=== PATIENT | female | born 1955 | race Caucasian/White ===

== ENCOUNTER 2023-07-27 12:33 | Inpatient (IN) | payer OTHER ==
[2023-07-27 13:22] VITALS: BMI 18.4
[2023-07-27] MEDS ORDERED: BENZONATATE 200 MG CAPSULE PO PRN (13:54)
[2023-07-27] MEDS ORDERED: guaiFENesin 600 MG TABLET.ER (FP) PO PRN (13:54)
[2023-07-27] MEDS ORDERED: hydrOXYzine PAMOATE 25 MG CAPSULE (FP) PO PRN (13:54)
[2023-07-27] MEDS ORDERED: BENZOCAINE/MENTHOL (CHLORASEPTIC ) LOZENGE MM PRN (13:54)
[2023-07-27] MEDS ORDERED: POLYETHYLENE GLYCOL (HEALTHYLAX) 3350 17 GM PACKET PO PRN (13:54)
[2023-07-27] MEDS ORDERED: LOPERAMIDE HCL 2 MG CAPSULE PO PRN (13:54)
[2023-07-27] MEDS ORDERED: NALOXONE HCL 0.4 MG/ML VIAL IM PRN (13:54)
[2023-07-27] MEDS ORDERED: MAGNESIUM HYDROX 2400MG/30ML ORAL SUSPENSION 30 ML CUP PO PRN (13:54)
[2023-07-27] MEDS ORDERED: IBUPROFEN 400 MG TABLET (FP) PO PRN (13:54)
[2023-07-27] MEDS ORDERED: MAG HYDROX/AL HYDROX/SIMETH 30 ML UNIT-DOSE CUP PO PRN (13:54)
[2023-07-27] MEDS ORDERED: NALOXONE HCL (KLOXXADO) 8 MG SPRAY NS PRN (13:54)
[2023-07-27] MEDS ORDERED: PRENATAL VITAMINS W/ FOLIC ACID TABLET (FP) PO ONE (15:01)
[2023-07-27] MEDS: PRENATAL VITAMINS W/ FOLIC ACID TABLET (FP) PO SCH (15:23)
[2023-07-27] MEDS: IBUPROFEN 600 MG TABLET (FP) PO PRN (18:41)
[2023-07-27] MEDS: ALBUTEROL SO4 HFA INHALER IH PRN (18:46)
[2023-07-27] MEDS: MELATONIN 5 MG TABLETS PO SCH (21:42)
[2023-07-27] MEDS: GABAPENTIN 300 MG CAPSULE PO SCH (21:42)
[2023-07-27] MEDS: THIAMINE HCL 100 MG TABLET (FP) PO SCH (21:42)
[2023-07-27] MEDS: OLANZapine 5 MG TABLET PO SCH (21:42)
[2023-07-27] MEDS: TUBERCULIN PPD 5 TU/0.1ML VIAL ID ONE (22:21)
[2023-07-28] MEDS: LEVOTHYROXINE 100 MCG, LEVOTHYROXINE 25 MCG PO SCH (07:17)
[2023-07-28] MEDS: SERTRALINE HCL 50 MG TABLET (FP) PO SCH (09:57)
[2023-07-28] MEDS ORDERED: LEVOTHYROXINE NA 125 MCG TABLET (FP) PO SCH (10:00)
[2023-07-28 10:31] LABS: HEMATOCRIT 29.4 % (32.4-45.2); HEMOGLOBIN 9.6 GM/dL (10.7-15.3); MCH 29.6 pg (25.7-33.7); MCHC 32.7 g/dl (32.0-36.0); MEAN CELL VOLUME 90.5 fl (80-96); MEAN PLT VOLUME 9.6 fl (7.5-11.1); PLATELET COUNT 267 10^3/uL (134-434); RBC 3.25 M/mm3 (3.60-5.2)
[2023-07-28 10:37] LABS: CHLORIDE 103 mmol/L (98-107); POTASSIUM 4.5 mmol/L (3.5-5.1); SODIUM 139 mmol/L (136-145)
[2023-07-28 10:44] LABS: ALBUMIN 3.5 g/dl (3.4-5.0); ANION GAP 6 mmol/L (4-13); BLOOD UREA NITROGEN 26.4 mg/dL (7-18); CALCIUM 9.2 mg/dL (8.5-10.1); CO2 30 mmol/L (21-32); GLUCOSE,RANDOM 88 mg/dL (74-106)
[2023-07-28 10:46] LABS: BILIRUBIN,TOTAL 0.2 mg/dL (0.2-1); CREATININE 0.9 mg/dL (0.55-1.3); SGPT/ALT 16 U/L (13-61); TOT PROT 6.8 g/dl (6.4-8.2)
[2023-07-28 10:47] LABS: SGOT/AST 20 U/L (15-37)
[2023-07-28 10:48] LABS: ALK PHOS 55 U/L (45-117)
[2023-07-28 10:59] LABS: SYPHILIS W/ RPR CONF NON-REACTIVE (NONREACTIVE)
[2023-07-28] MEDS: PNEUMOC 20-VAL CONJ-DIP CRM/PF 0.5 ML SYRINGE IM ONE (12:42)
[2023-07-28] MEDS: FLU VACCINE (FLULAVAL) PF 60 MCG/0.5 ML SYRINGE 2023-2024 IM ONE (12:42)
[2023-07-28 18:07] LABS: PH,URINE 6.5 (5.0-8.0); URINE APPEARANCE CLEAR; URINE BILIRUBIN NEGATIVE (NEGATIVE); URINE COLOR YELLOW; URINE GLUCOSE (UA) NEGATIVE (NEGATIVE); URINE KETONE NEGATIVE (NEGATIVE); URINE LEUK ESTERASE NEGATIVE (NEGATIVE); URINE NITRITE NEGATIVE (NEGATIVE); URINE PROTEIN NEGATIVE (NEGATIVE); URINE UROBILINOGEN 0.2 mg/dL (0.2-1.0)
[2023-07-30] MEDS: IBUPROFEN 400 MG TABLET (FP) PO PRN (18:49)
[2023-07-31] MEDS: FERROUS SO4 325 MG TABLET (FP) PO SCH (10:07)
[2023-07-31] MEDS: PANTOPRAZOLE 40 MG TABLET PO SCH (12:02)
[2023-07-31] MEDS: CELECOXIB 100 MG CAPSULE PO ONE (13:23)
[2023-07-31] MEDS: CELECOXIB 100 MG CAPSULE PO PRN (17:45)
[2023-07-31] MEDS: ACETAMINOPHEN 325 MG TABLET (FP) PO PRN (19:52)
[2023-08-01] MEDS: BUPRENORPHINE/NALOXONE 8 MG/2 MG FILM PACKET SL SCH (14:20)
[2023-08-03] MEDS: OLANZapine 7.5 MG TABLET PO SCH (21:28)
[2023-08-09] MEDS: DOXYCYCLINE HYCLATE 100 MG TABLET PO SCH (17:38)
[2023-08-14 08:39] VITALS: RESP 18
[2023-08-14] MEDS: SERTRALINE HCL 50 MG TABLET (FP) PO SCH (09:45)
[2023-08-16 07:30] VITALS: BP 129/60; PULSE 60; TEMP 98.1
== END 2023-08-16 10:20 | disposition home or self-care (01) | DRG 772 ==
LOC: YASAS 12:33 → Y5N 14:44
PROVIDERS: ADMIT Allergy & Immunology; ATTEND Psychiatry & Neurology Pain Medicine
PROC: HZ42ZZZ Group Counseling for Substance Abuse Treatment, Cognitive-Behavioral (ICD-10-PCS; principal; 2023-07-27)
DX: F11.20 Opioid dependence, uncomplicated (principal); F12.20 Cannabis dependence, uncomplicated; F31.9 Bipolar disorder, unspecified; E03.9 Hypothyroidism, unspecified; I10 Essential (primary) hypertension; J44.9 Chronic obstructive pulmonary disease, unspecified; K02.9 Dental caries, unspecified; M54.40 Lumbago with sciatica, unspecified side; M06.9 Rheumatoid arthritis, unspecified; G89.29 Other chronic pain; R60.0 Localized edema; Z87.891 Personal history of nicotine dependence; Z86.39 Personal history of other endocrine, nutritional and metabolic disease; Z88.0 Allergy status to penicillin
CPT/HCPCS: 36415; 80053; 80307; 81003; 85027; 86780; 86803; 87635; 93005; 93010